=== PATIENT | female | born 1995 ===

== ENCOUNTER 2016-12-14 12:02 | Emergency (ER) | payer MEDICAID ==
[2016-12-14 12:11] VITALS: TEMP 99.4; O2SAT 99
[2016-12-14] MEDS ORDERED: Sodium Chloride 0.9% 1,000 ML IV STA (12:20)
[2016-12-14 13:28] LABS: BASO # 0.05 K/mm3 (0.0-2.0); EOS # 0.2 (0.0-0.7); EOS % 3.1 % (1.5-5.0); GRAN # 1.86 (1.4-6.5); GRAN % 38.7 % (50.0-68.0); HEMOGLOBIN 13.5 g/dL (12.0-16.0); LYMPH # 2.2 (1.2-3.4); LYMPH % 46.6 % (22.0-35.0); MEAN CELL VOLUME 79.5 fl (80.0-105.0); MEAN CORPUSCULAR HEMOGLOBIN 26.6 pg (25.0-35.0); MEAN CORPUSCULAR HGB CONC 33.5 g/dl (31.0-37.0); MEAN PLATELET VOLUME 11.3 fl (7.0-11.0); MONO # 0.5 (0.1-0.6); MONO % 10.6 % (1.0-6.0); PLATELET COUNT 151 10^3/uL (120.0-450.0); RBC 5.07 10^6/uL (3.5-6.1); RED CELL DISTRIBUTION WIDTH 12.7 % (11.5-14.5); URINE BILIRUBIN NEGATIVE (NEGATIVE); URINE BLOOD NEGATIVE (NEGATIVE); URINE GLUCOSE (UA) NEGATIVE (NEGATIVE); URINE LEUKOCYTE ESTERASE TRACE Leu/uL (NEGATIVE); URINE NITRATE NEGATIVE (NEGATIVE); URINE PROTEIN NEGATIVE mg/dL (<30 mg/dL); URINE UROBILINOGEN 0.2 E.U./dL (<1 E.U./dL); WHITE BLOOD COUNT 4.8 10^3/ul (4.5-11.0)
[2016-12-14 13:32] LABS: URINE APPEARANCE CLEAR (CLEAR); URINE COLOR YELLOW (YELLOW)
[2016-12-14 13:33] LABS: HCG,QUALITATIVE URINE NEGATIVE (NEGATIVE)
[2016-12-14 13:38] LABS: INR 1.06 (0.93-1.08); PARTIAL THROMBOPLASTIN TIME 25.7 Seconds (23.7-30.8); PROTHROMBIN TIME 11.4 Seconds (9.9-11.8)
[2016-12-14 13:39] LABS: URINE BACTERIA SMALL (NEG); URINE RBC 0 - 2 /hpf (0-2); URINE WBC 0 - 2 /hpf (0-6)
[2016-12-14 14:16] LABS: ALB/GLOB RATIO 1.3 (1.1-1.8); ALBUMIN 4.1 g/dL (3.0-4.8); ALT/SGPT 25 U/L (7-56); AST/SGOT 22 U/L (15-39); BLOOD UREA NITROGEN 10 mg/dL (7-21); CALCIUM 8.9 mg/dL (8.4-10.5); GFR AFRICAN-AMERICAN > 60; GFR NON-AFRICAN AMERICAN > 60; LIPASE 171 U/L (23-300)
[2016-12-14] MEDS ORDERED: Iohexol 350 MG/100 ML VIAL ONE (14:21)
--- NOTE | 2016-12-14 15:03 | CT ---
PROCEDURE: CT Abdomen and Pelvis with contrast HISTORY: rlq pain COMPARISON: None. TECHNIQUE: Contrast dose: 100 cc of Omni 350 Radiation dose: Total exam DLP = 286 mGy-cm. This CT exam was performed using one or more of the following dose reduction techniques: Automated exposure control, adjustment of the mA and/or kV according to patient size, and/or use of iterative reconstruction technique. FINDINGS: LOWER THORAX: Unremarkable. LIVER: Unremarkable. No gross lesion or ductal dilatation. GALLBLADDER AND BILE DUCTS: Unremarkable. PANCREAS: Unremarkable. No gross lesion or ductal dilatation. SPLEEN: Unremarkable. ADRENALS: Unremarkable. No mass. KIDNEYS AND URETERS: Unremarkable. No hydronephrosis. No solid mass. VASCULATURE: Unremarkable. No aortic aneurysm. BOWEL: Unremarkable. No obstruction. No gross mural thickening. APPENDIX: Normal appendix. PERITONEUM: Unremarkable. No free fluid. No free air. LYMPH NODES: Unremarkable. No enlarged lymph nodes. BLADDER: Unremarkable. REPRODUCTIVE: There is a collapsed thick-walled enhancing ovarian cyst on the right consistent with recent rupture. There is a small amount of fluid in the cul-de-sac BONES: No acute fracture. OTHER FINDINGS: None. IMPRESSION: Normal appendix. Ruptured ovarian cyst on the right with fluid in the cul-de-sac
--- NOTE | 2016-12-14 15:17 | ED PDOC ---
Arrival/HPI - General Chief Complaint: Abdominal Pain Time Seen by Provider: 12/14/16 12:16 Historian: Patient - History of Present Illness Narrative History of Present Illness (Text): 12/14/16 15:12 A 21 year old female with no known medical history presents to the emergency department with 4 day duration right lower quadrant pain. She denies fevers, chills, headache, dizziness, nausea, vomiting, diarrhea, chest pain, shortness of breath, or any other complaint. Time/Duration: Other (4 days) Symptom Onset: Sudden Symptom Course: Unchanged Activities at Onset: Rest, Light Context: Home Past Medical History - Provider Review Nursing Documentation Reviewed: Yes - Psychiatric Hx Substance Use: No Family/Social History - Physician Review Nursing Documentation Reviewed: Yes Family/Social History: No Known Family HX Smoking Status: Never Smoked Hx Alcohol Use: Yes Frequency of alcohol use: Socially Hx Substance Use: No Allergies/Home Meds Allergies/Adverse Reactions: Allergies No Known Allergies Allergy (Verified 12/14/16 12:10) Review of Systems - Physician Review All systems were reviewed & negative as marked: Yes - Review of Systems Constitutional: absent: Fevers, Night Sweats Respiratory: absent: SOB Cardiovascular: absent: Chest Pain Gastrointestinal: Abdominal Pain (RLQ). absent: Diarrhea, Nausea, Vomiting Neurological: absent: Headache, Dizziness Physical Exam Vital Signs Reviewed: Yes Vital Signs Temp Pulse Resp BP Pulse Ox 12/14/16 15:31 77 18 117/76 99 12/14/16 12:10 99.4 F 89 16 116/77 99 Temperature: Afebrile Blood Pressure: Normal Pulse: Regular Respiratory Rate: Normal Appearance: Positive for: Well-Appearing, Non-Toxic, Comfortable Pain Distress: None Mental Status: Positive for: Alert and Oriented X 3 - Systems Exam Head: Present: Atraumatic, Normocephalic Pupils: Present: PERRL Extroacular Muscles: Present: EOMI Conjunctiva: Present: Normal Mouth: Present: Moist Mucous Membranes Neck: Present: Normal Range of Motion Respiratory/Chest: Present: Clear to Auscultation, Good Air Exchange. No: Respiratory Distress, Accessory Muscle Use Cardiovascular: Present: Regular Rate and Rhythm, Normal S1, S2. No: Murmurs Abdomen: Present: Tenderness (Right Lower Quadrant tenderness) Back: Present: Normal Inspection Upper Extremity: Present: Normal Inspection. No: Cyanosis, Edema Lower Extremity: Present: Normal Inspection. No: Edema Neurological: Present: GCS=15, CN II-XII Intact, Speech Normal Skin: Present: Warm, Dry, Normal Color. No: Rashes Psychiatric: Present: Alert, Oriented x 3, Normal Insight, Normal Concentration Medical Decision Making ED Course and Treatment: 12/14/16 15:19 Impression: A 21 year old female presents with 4 day duration right lower quadrant abdominal pain Differential Diagnosis included but are not limited to: r/o appendicitis Plan: -- Toradol and IV Fluids -- Urine Culture -- Reassess and disposition Progress Notes: 12/14/16 17:12 pain improved. abd soft. on phone in nad. ct shows ruptured cyst. - Lab Interpretations Lab Results: 12/14/16 13:10 12/14/16 13:55 Lab Results 12/14/16 13:55: Sodium 141, Potassium 3.5 L, Chloride 104, Carbon Dioxide 23, Anion Gap 18, BUN 10, Creatinine 0.6, Est GFR ( Amer) > 60, Est GFR (Non- Af Amer) > 60, Random Glucose 70, Calcium 8.9, Total Bilirubin 0.4, AST 22, ALT 25, Alkaline Phosphatase 67, Total Protein 7.3, Albumin 4.1, Globulin 3.2, Albumin/Globulin Ratio 1.3, Lipase 171 12/14/16 13:10: Urine Color Yellow, Urine Appearance Clear, Urine pH 6.0, Ur Specific [place] 1.020, Urine Protein Negative, Urine Glucose (UA) Negative, Urine Ketones Negative, Urine Blood Negative, Urine Nitrate Negative, Urine Bilirubin Negative, Urine Urobilinogen 0.2, Ur Leukocyte Esterase Trace H, Urine RBC 0 - 2, Urine WBC 0 - 2, Ur Epithelial Cells 1 - 3, Urine Bacteria Small, Urine HCG, Qual Negative 12/14/16 13:10: PT 11.4, INR 1.06, APTT 25.7 12/14/16 13:10: WBC 4.8, RBC 5.07, Hgb 13.5, Hct 40.3, MCV 79.5 L, MCH 26.6, MCHC 33.5, RDW 12.7, Plt Count 151, MPV 11.3 H, Gran % 38.7 L, Lymph % (Auto) 46.6 H, Barron % (Auto) 10.6 H, Eos % (Auto) 3.1, Baso % (Auto) 1.0, Gran # 1.86, Lymph # 2.2, Barron # 0.5, Eos # 0.2, Baso # 0.05 - RAD Interpretation Radiology Orders: 12/14/16 14:03 ABD & PELVIS IV CONTRAST ONLY [CT] Stat - Medication Orders Current Medication Orders: Discontinued Medications Sodium Chloride (Sodium Chloride 0.9%) 1,000 mls @ 1,000 mls/hr IV .Q1H STA Stop: 12/14/16 13:19 Last Admin: 12/14/16 13:24 Dose: 1,000 mls/hr Iohexol (Omnipaque 350 100 Ml) Confirm Administered Dose 350 mg .ROUTE .STK-MED ONE Stop: 12/14/16 14:22 Ketorolac Tromethamine (Toradol) 30 mg IVP STAT STA Stop: 12/14/16 15:09 Last Admin: 12/14/16 15:28 Dose: 30 mg - Scribe Statement The provider has reviewed the documentation as recorded by the Rubina Nix Provider Scribe Attestation: All medical record entries made by the Stanleyibalcon were at my direction and personally dictated by me. I have reviewed the chart and agree that the record accurately reflects my personal performance of the history, physical exam, medical decision making, and the department course for this patient. I have also personally directed, reviewed, and agree with the discharge instructions and disposition. Disposition/Present on Arrival - Present on Arrival Any Indicators Present on Arrival: No History of DVT/PE: No History of Uncontrolled Diabetes: No Urinary Catheter: No History of Decub. Ulcer: No History Surgical Site Infection Following: None - Disposition Have Diagnosis and Disposition been Completed?: Yes Diagnosis: Ruptured ovarian cyst Disposition: HOME/ ROUTINE Disposition Time: 03:00 Condition: STABLE Discharge Instructions (ExitCare): Ovarian Cyst (ED), Acute Abdominal Pain (ED) Additional Instructions: please follow up with your doctor/specialist. return to er with worsening symptoms or concerns. Prescriptions: Naproxen [Naprosyn] 500 mg PO BID PRN #14 tablet PRN Reason: Pain, Mild (1-3) Referrals: [facility] [place]] - [facility] - Follow up with primary Forms: [employer] ([place]ese)
[2016-12-14 15:31] VITALS: BP 117/76; PULSE 77; RESP 18
== END 2016-12-14 15:31 | disposition home or self-care (01) ==
LOC: ED 12:02
DX: N83.201 Unspecified ovarian cyst, right side (principal)
CPT/HCPCS: 74177; 80053; 81001; 83690; 84703; 85025; 85610; 85730; 87086; 96374; 99283; J1885; J7040; Q9967

== ENCOUNTER 2017-04-09 19:23 | Emergency (ER) | payer MEDICAID ==
[2017-04-09 20:18] VITALS: TEMP 99.2
--- NOTE | 2017-04-09 21:29 | ED PDOC ---
Arrival/HPI <Bijan Patel - Last Filed: 04/09/17 22:25> - General Historian: Patient <Yahaira Staley PA-C - Last Filed: 04/10/17 00:27> - General Chief Complaint: Allergic Reaction Time Seen by Provider: 04/09/17 20:34 - History of Present Illness Narrative History of Present Illness (Text): 04/10/17 00:22 22 yo yo F reports 3-4 days of painful itchy circular lesions to the R side of her upper and lower lip, which is new, she has never had before, she adds that she had flu like symptoms 1 week ago, which has resolved. Has no additional complaints. Otherwise: (-) cough, (-) sore throat, (-) URI symptoms, (-) SOB, ( -) chest pain, (-) N/V/D, (-) fever, (-) recent travel, (-) sick contacts. PMD none (Yahaira Staley PA-C) Past Medical History - Provider Review Nursing Documentation Reviewed: Yes - Psychiatric Hx Substance Use: No <Yahaira Staley PA-C - Last Filed: 04/10/17 00:27> Family/Social History - Physician Review Nursing Documentation Reviewed: Yes Family/Social History: Unknown Family HX Smoking Status: Never Smoked Hx Alcohol Use: Yes Hx Substance Use: No <Yahaira Staley PA-C - Last Filed: 04/10/17 00:27> Allergies/Home Meds <Bijan Patel - Last Filed: 04/09/17 22:25> <Yahaira Staley PA-C - Last Filed: 04/10/17 00:27> Allergies/Adverse Reactions: Allergies No Known Allergies Allergy (Verified 12/14/16 12:10) Review of Systems - Review of Systems Constitutional: absent: Fatigue, Weight Change, Fevers ENT: absent: Sore Throat, Rhinorrhea, Epistaxis Respiratory: Cough (cough with flu like symptoms last week). absent: SOB, Sputum Musculoskeletal: absent: Arthralgias, Back Pain, Neck Pain Skin: Skin Lesions (to the R side of the lip). absent: Rash, Pruritis, Laceration <Yahaira Staley PA-C - Last Filed: 04/10/17 00:27> Physical Exam Vital Signs Reviewed: Yes Temperature: Afebrile Blood Pressure: Normal Pulse: Regular Respiratory Rate: Normal Appearance: Positive for: Well-Appearing, Non-Toxic, Comfortable Pain Distress: None Mental Status: Positive for: Alert and Oriented X 3 - Systems Exam Head: Present: Atraumatic, Normocephalic Pupils: Present: PERRL Extroacular Muscles: Present: EOMI Conjunctiva: Present: Normal Ears: Present: Normal, NORMAL TM Mouth: Present: Moist Mucous Membranes, Other (+multiple erythematous circular lesions to the R side of the lip). No: Drooling, Trismus Pharnyx: Present: Normal. No: ERYTHEMA, EXUDATE Neck: Present: Normal Range of Motion. No: Meningeal Signs Respiratory/Chest: Present: Clear to Auscultation, Good Air Exchange. No: Wheezes, Rhonchi Cardiovascular: Present: Regular Rate and Rhythm, Normal S1, S2. No: Murmurs Neurological: Present: GCS=15, CN II-XII Intact, Motor Func Grossly Intact, Normal Sensory Function Skin: Present: Warm, Dry, Normal Color. No: Rashes <Yahaira Staley PA-C - Last Filed: 04/10/17 00:27> Vital Signs Temp Pulse Resp BP Pulse Ox 04/09/17 21:55 72 18 124/71 99 04/09/17 20:02 99.2 F 71 16 118/81 96 Medical Decision Making <Bijan Patel - Last Filed: 04/09/17 22:25> <Yahaira Staley PA-C - Last Filed: 04/10/17 00:27> ED Course and Treatment: 04/10/17 00:26 22 yo yo F reports 3-4 days of painful itchy circular lesions to the R side of her upper and lower lip, which is new, she has never had before, she adds that she had flu like symptoms 1 week ago, which has resolved. Dx of herpes labialis d/w the patient. Given naprosyn PO for pain and Rx for topical acyclovir. Otherwise instructed to follow up with the clinic in 1-2 days without fail. Advised to take medication as prescribed. Return to the emergency room at any time for any new or worsening symptoms. Patient states she fully agrees with and understands discharge instructions. States that she agrees with the plan and disposition. Verbalized and repeated discharge instructions and plan. I have given the patient opportunity to ask any additional questions. (Yahaira Staley PA-C) - Medication Orders Current Medication Orders: Discontinued Medications Naproxen (Anaprox Ds) 550 mg PO ONCE STA Stop: 04/09/17 21:39 Last Admin: 04/09/17 22:49 Dose: 550 mg - PA / SOFTWARE COMPUTER SPECIALIST / Resident Statement NETTIE has reviewed & agrees with the documentation as recorded. <Bijan Patel - Last Filed: 04/09/17 22:25> - PA / SOFTWARE COMPUTER SPECIALIST / Resident Statement NETTIE has reviewed & agrees with the documentation as recorded. <Yahaira Staley PA-C - Last Filed: 04/10/17 00:27> Disposition/Present on Arrival <Bijan Patel - Last Filed: 04/09/17 22:25> - Present on Arrival Any Indicators Present on Arrival: No History of DVT/PE: No History of Uncontrolled Diabetes: No Urinary Catheter: No History of Decub. Ulcer: No History Surgical Site Infection Following: None - Disposition Have Diagnosis and Disposition been Completed?: Yes Disposition Time: 21:26 Patient Plan: Discharge <Yahaira Staley PA-C - Last Filed: 04/10/17 00:27> - Disposition Diagnosis: Herpes labialis Disposition: HOME/ ROUTINE Condition: STABLE Discharge Instructions (ExitCare): Canker Sores (ED), Gingivostomatitis (ED) Print Language: NIGERIAN Additional Instructions: Thank you for letting us take care of you today. You were treated for herpes labialis. The emergency medical care you received today was directed at your acute symptoms. If you were prescribed any medication, please fill it and take as directed. It may take several days for your symptoms to resolve. Return to the Emergency Department if your symptoms worsen, do not improve, or if you have any other problems. Please contact your doctor in 2 days for re-evaluation and follow up / or call one of the physicians/clinics you have been referred to that are listed on the Patient Visit Information form that is included in your discharge packet. Bring any paperwork you were given at discharge with you along with any medications you are taking to your follow up visit. Our treatment cannot replace ongoing medical care by a primary care provider (PCP) outside of the emergency department. Thank you for allowing the [facility] team to be part of your care today. Prescriptions: Acyclovir 5% [Zovirax 5% Oint] 1 applic EXT Q4H #1 tube Referrals: PCP,NO [Primary Care Provider] - Follow up with primary Forms: [employer] (Nepali), WORK NOTE, SCHOOL NOTE
[2017-04-09] MEDS ORDERED: Naproxen 550 mg Tab PO STA (21:38)
[2017-04-09 22:41] VITALS: RESP 18
[2017-04-09 22:49] VITALS: BP 124/71; PULSE 72; O2SAT 99
== END 2017-04-09 21:55 | disposition home or self-care (01) ==
LOC: ED 19:23
DX: B00.1 Herpesviral vesicular dermatitis (principal)